=== PATIENT | male | born 1955 | race Caucasian/White ===

== ENCOUNTER 2023-02-04 14:58 | Emergency (ER) | payer MEDICARE ==
[~2023-02-04] VITALS: Ht 190.5 cm; Wt 122.5 kg
[2023-02-04] MEDS ORDERED: ELIQUIS5 MG PO (18:16)
[2023-02-04 18:30] VITALS: BP 138/82
== END 2023-02-04 18:30 | disposition home or self-care (01) ==
LOC: ED 14:58
DX: I82.411 Acute embolism and thrombosis of right femoral vein (principal); I82.431 Acute embolism and thrombosis of right popliteal vein; I82.4Z1 Acute embolism and thrombosis of unspecified deep veins of right distal lower extremity
CPT/HCPCS: 36415; 80053; 83605; 85025; 93971; 96372; 99284-25; J1650

== ENCOUNTER 2023-10-13 08:46 | Day surgery (SDC) | payer MEDICARE ==
[~2023-10-13] VITALS: Ht 190.5 cm; Wt 122.7 kg
--- NOTE | ~2023-10-13 | OR ---
[facility] [address] [place], [place] [address] Draft DATE OF OPERATION: 10/13/2023 SURGEON: Alesha Carter MD PREOPERATIVE DIAGNOSIS: History of sigmoid resection for malignancy in 2002. POSTOPERATIVE DIAGNOSES: 1. Widely patent anastomosis of coloproctostomy. 2. Scattered diverticula. 3. Sessile polyp of cecum (excised). PROCEDURE: Total colonoscopy to cecum with cold snare polypectomy x1. ANESTHESIA: Intravenous sedation; fentanyl 100 mcg and Versed 5 mg. INDICATION: This 68-year-old white man is a patient of Dr. Raz Parra. He lives in [place], [place]. He underwent sigmoid resection in 2002 for cancer. He is here for surveillance colonoscopy. He understands the risk of bleeding, infection, and perforation. FINDINGS: The prep was good. Complete colonoscopy was undertaken to the cecum without question. The anastomosis was widely patent. He did have scattered diverticula of the left colon. He did have a sessile polyp of the cecal area, which was excised with cold snare technique completely. DESCRIPTION OF PROCEDURE: The patient was brought to the endoscopy suite and placed in the lateral decubitus position, given intravenous sedation to the point of slurred speech and nystagmus. Digital rectal examination was normal. An Olympus video colonoscope was passed in the rectum and manipulated throughout the colon ultimately intubating the cecum itself. The ileocecal valve and appendiceal orifice were normal. Upon withdrawal of the scope, noted was a sessile polyp directly over colon. This was excised with cold snare technique in two separate pieces. Complete excision was accomplished. The specimen was passed for pathology. The scope was further withdrawn and scattered diverticula were noted, particularly in PATIENT NAME: PATRICIA MEDINA OPERATIVE REPORT DATE OF : 57 REPORT #: [id number] PHYSICIAN: ALESHA CARTER MD PCP: RAZ PARRA MD REPORT IS CONFIDENTIAL AND NOT TO BE RELEASED WITHOUT AUTHORIZATION [facility] [address] [place], [place] [address], [place] [address] Draft the jeferson left colon. The coloproctostomy (anastomosis) was widely patent. The rectum was normal otherwise as well. The scope was removed and the patient was taken to the recovery room in good condition. CONCLUDING DIAGNOSES: 1. Polyp of cecum. 2. Diverticulosis. PLAN: Would recommend repeat colonoscopy in three years based on the polyp identified today. This procedure could be undertaken sooner if symptoms should occur. He will return to the ongoing care of Dr. Raz Parra. MD RADHA Wallis/ZEINA /[id number] cc: Raz Parra MD Copies: RAZ PARRA MD ~ PATIENT NAME: PATRICIA MEDINA OPERATIVE REPORT DATE OF : 57 REPORT #: [id number] PHYSICIAN: ALESHA CARTER MD PCP: RAZ PARRA MD REPORT IS CONFIDENTIAL AND NOT TO BE RELEASED WITHOUT AUTHORIZATION
[~2023-10-13 08:46] MED LIST: ELIQUIS5 MG PO; ZESTRIL20 MG PO
[2023-10-13 09:10] VITALS: BP 111/73
--- NOTE | 2023-10-13 11:26 | NUR ---
10/13/23 1126 Fide Carroll PATIENT ARRIVES IN PACU AWAKE AND TALKING WITH RN. HE DOES REST QUIETLY, WITH EYES CLOSED, RESPIRATIONS EVEN AND UNLABORED WHEN UNSTIMULATED.
[2023-10-13 11:45] VITALS: BP 109/72
--- NOTE | 2023-10-17 15:54 | PATH ---
[facility] [address] [facility] [place], [place] [address] Signed SPECIMEN(S): A CECUM COLON POLYP SPECIMEN SOURCE: A. CECUM COLON POLYP CLINICAL HISTORY: 2002 colon cancer FINAL PATHOLOGIC DIAGNOSIS: Cecum colon polyp: - Tubular adenoma (multiple fragments). JVR:clv MICROSCOPIC EXAMINATION: Histologic sections of all submitted blocks are examined by light microscopy. These findings, together with the gross examination, support the pathologic diagnosis. GROSS DESCRIPTION: The specimen, labeled and designated "Megan, cecum colon polyp," is received in formalin and consists of eight lau soft tissue fragments, ranging from 0.3-0.7 cm. Entirely submitted in (A1). VB (under the direct supervision of a pathologist) The Gross Description was prepared using a voice recognition system. The report was reviewed for accuracy; however, sound-alike word errors, addition and/or deletions may occur. If there is any question about this report, please contact Client Services. PERFORMING LABORATORY: Technical component was performed by [facility], [address] [place] [id number] (CLIA# [id number]). Professional interpretation was performed by [facility], [address] [place] [phone] (CLIA#: [id number]). Diagnostician: Scott Bustillos MD Pathologist Electronically Signed 10/17/2023 Copies: PATIENT NAME: PATRICIA MEDINA PATHOLOGY DATE OF : 57 REPORT #: [id number] PHYSICIAN: YESENIA PATHOLOGY PCP: RAZ LIRA MD REPORT IS CONFIDENTIAL AND NOT TO BE RELEASED WITHOUT AUTHORIZATION [address] [place], [place] [address] Signed ~ PATIENT NAME: PATRICIA MEDINA [facility] PATHOLOGY DATE OF : 57 REPORT #: [id number] PHYSICIAN: YESENIA PATHOLOGY PCP: RAZ LIRA MD REPORT IS CONFIDENTIAL AND NOT TO BE RELEASED WITHOUT AUTHORIZATION
== END 2023-10-13 11:55 | disposition home or self-care (01) ==
LOC: OPS 08:46 → DS 08:50 → OPS 10:00
PROVIDERS: ATTEND Surgery
PROC: 0DBH8ZZ Excision of Cecum, Via Natural or Artificial Opening Endoscopic (ICD-10-PCS; principal; 2023-10-13 10:00)
DX: Z12.11 Encounter for screening for malignant neoplasm of colon (principal); D12.0 Benign neoplasm of cecum; Z80.0 Family history of malignant neoplasm of digestive organs; Z85.038 Personal history of other malignant neoplasm of large intestine; Z86.718 Personal history of other venous thrombosis and embolism; I10 Essential (primary) hypertension; K57.30 Diverticulosis of large intestine without perforation or abscess without bleeding
CPT/HCPCS: 99153; G0500; J0690; J2250; J3010; J7121